=== PATIENT | male | born 1945 | race African-American/Black ===

== ENCOUNTER 2019-07-23 23:56 | Inpatient (IN) | payer MEDICARE, OTHER ==
[~2019-07-23] VITALS: Ht 177.8 cm; Wt 99.4 kg
[2019-07-24] MEDS ORDERED: SODIUM CHLORIDE 0.9% 1,000 ML IV ONE (01:28)
[2019-07-24] MEDS ORDERED: ASPIRIN 81MG TABLET PO ONE (01:30)
[2019-07-24] MEDS ORDERED: NITROGLYCERIN OINT 1GM/INCH UDPKT TD ONE (01:30)
[2019-07-24 01:45] LABS: BASOPHILS % 0.5 % (0.0-2.0); EOSINOPHILS % 0.4 % (0.0-5.0); HEMATOCRIT. 45.8 % (42.0-52.0); HEMOGLOBIN. 15.6 g/dL (14.0-18.0); MEAN CORPUSCULAR HEMOGLOBIN 31.7 pg (28.0-32.0); MEAN CORPUSCULAR VOLUME 92.9 fL (80.0-94.0); MEAN PLATELET VOLUME 8.7 fl (7.4-10.4); MONOCYTES % 7.3 % (2.0-8.0); NEUTROPHILS % 79.8 % (40.0-76.0); PLATELET 216 x1000/uL (130-400); RED BLOOD CELL COUNT 4.93 mill/uL (4.7-6.1); RED CELL DISTRIBUTION WIDTH 14.6 % (11.6-14.6)
[2019-07-24 01:51] LABS: CHLORIDE 110 mEq/L (98-107)
[2019-07-24 01:55] LABS: INR 1.1; PROTHROMBIN TIME 11.4 sec (9.6-11.0)
[2019-07-24] MEDS ORDERED: ENOXAPARIN 100MG/ML SYR SUBCUT ONE (10:15)
[2019-07-24 11:15] VITALS: BP 154/95
[2019-07-24 16:00] VITALS: BP 158/87
[2019-07-24] MEDS ORDERED: ACETAMINOPHEN 325MG TABLET PO PRN (16:00)
[2019-07-24] MEDS ORDERED: MAGNESIUM HYDROXIDE 400MG/5ML 30ML UDC PO PRN (16:00)
[2019-07-24] MEDS ORDERED: LORAZEPAM 1MG TABLET PO PRN (16:00)
[2019-07-24] MEDS ORDERED: CLOP75TA4 MT (18:45)
[2019-07-24] MEDS ORDERED: MAGN250T29 MT (18:45)
[2019-07-24] MEDS ORDERED: AMLO2.5T45 MT (18:45)
[2019-07-24] MEDS ORDERED: LEVO25TA7 MT (18:45)
[2019-07-24 20:00] VITALS: BP 158/96
[2019-07-24] MEDS: ATORVASTATIN CALCIUM 20MG TABLET PO SCH (21:00)
[2019-07-24] MEDS: CLOPIDOGREL 75MG TABLET PO SCH (21:00)
[2019-07-24] MEDS ORDERED: NITROGLYCERIN OINT 1GM/INCH UDPKT TD SCH (22:00)
[2019-07-24] MEDS: NITROGLYCERIN OINT 1GM/INCH UDPKT TD SCH (22:18)
[2019-07-24] MEDS ORDERED: ENOXAPARIN 80MG/0.8ML SYR SUBCUT NR (23:00)
[2019-07-25] VITALS: BP 147/99
[2019-07-25 04:00] VITALS: BP 147/80
[2019-07-25] MEDS: NITROGLYCERIN OINT 1GM/INCH UDPKT TD SCH ×3 (06:12→21:26)
[2019-07-25 07:12] LABS: BASOPHILS % 0.4 % (0.0-2.0); HEMATOCRIT. 44.6 % (42.0-52.0); LYMPHOCYTES % 16.8 % (20.0-50.0); MEAN CORPUSCULAR HEMOGLOBIN 31.6 pg (28.0-32.0); MEAN CORPUSCULAR VOLUME 94.1 fL (80.0-94.0); MEAN PLATELET VOLUME 8.7 fl (7.4-10.4); MONOCYTES % 9.9 % (2.0-8.0); NEUTROPHILS % 68.9 % (40.0-76.0); PLATELET 166 x1000/uL (130-400); RED BLOOD CELL COUNT 4.75 mill/uL (4.7-6.1); RED CELL DISTRIBUTION WIDTH 15.1 % (11.6-14.6)
[2019-07-25 07:35] LABS: CHLORIDE 109 mEq/L (98-107)
[2019-07-25 08:00] VITALS: BP 150/90
[2019-07-25] MEDS: DOCUSATE SODIUM 100MG CAPSULE PO SCH (09:00)
[2019-07-25] MEDS: FAMOTIDINE 20MG TABLET PO SCH (09:00)
[2019-07-25] MEDS: ASPIRIN 81MG EC TABLET PO SCH (10:04)
[2019-07-25] MEDS: CLOPIDOGREL 75MG TABLET PO SCH (10:04)
[2019-07-25] MEDS ORDERED: SODIUM CHLORIDE 0.45% 1,000 ML IV SCH (10:30)
[2019-07-25 12:00] VITALS: BP 130/82
[2019-07-25] MEDS: IPRATROPIUM/ALBUTEROL 0.5-3(2.5)MG/3ML NEB HHN SCH ×2 (14:30→20:10)
[2019-07-25 16:00] VITALS: BP 140/70
[2019-07-25] MEDS ORDERED: ENOXAPARIN 80MG/0.8ML SYR SUBCUT NR (17:00)
[2019-07-25 20:00] VITALS: BP 138/75
[2019-07-25] MEDS: ATORVASTATIN CALCIUM 20MG TABLET PO SCH ×2 (21:00→21:27)
[2019-07-26] VITALS: BP 130/80
[2019-07-26] MEDS: IPRATROPIUM/ALBUTEROL 0.5-3(2.5)MG/3ML NEB HHN SCH ×5 (00:17→20:15)
[2019-07-26 04:00] VITALS: BP 140/82
[2019-07-26] MEDS: NITROGLYCERIN OINT 1GM/INCH UDPKT TD SCH ×3 (05:41→21:17)
[2019-07-26 06:38] LABS: BASOPHILS % 0.4 % (0.0-2.0); EOSINOPHILS % 2.6 % (0.0-5.0); HEMATOCRIT. 43.3 % (42.0-52.0); HEMOGLOBIN. 14.8 g/dL (14.0-18.0); MEAN CORPUSCULAR VOLUME 93.4 fL (80.0-94.0); MEAN PLATELET VOLUME 8.2 fl (7.4-10.4); MONOCYTES % 10.4 % (2.0-8.0); NEUTROPHILS % 68.6 % (40.0-76.0); PLATELET 175 x1000/uL (130-400); RED BLOOD CELL COUNT 4.64 mill/uL (4.7-6.1); RED CELL DISTRIBUTION WIDTH 14.6 % (11.6-14.6)
[2019-07-26 07:12] LABS: CHLORIDE 107 mEq/L (98-107)
[2019-07-26 08:00] VITALS: BP 144/92
[2019-07-26] MEDS: DOCUSATE SODIUM 100MG CAPSULE PO SCH (09:00)
[2019-07-26] MEDS: FAMOTIDINE 20MG TABLET PO SCH (09:00)
[2019-07-26] MEDS: ASPIRIN 81MG EC TABLET PO SCH (09:27)
[2019-07-26] MEDS: CLOPIDOGREL 75MG TABLET PO SCH (09:27)
[2019-07-26 12:00] VITALS: BP 144/85
[2019-07-26 16:00] VITALS: BP 122/77
[2019-07-26] MEDS: ATORVASTATIN CALCIUM 20MG TABLET PO SCH (21:00)
[2019-07-27] VITALS: BP 140/81
[2019-07-27 04:00] VITALS: BP 147/81
[2019-07-27] MEDS: NITROGLYCERIN OINT 1GM/INCH UDPKT TD SCH ×3 (05:52→22:00)
[2019-07-27 08:00] VITALS: BP 131/76
[2019-07-27] MEDS: DOCUSATE SODIUM 100MG CAPSULE PO SCH (09:00)
[2019-07-27] MEDS: FAMOTIDINE 20MG TABLET PO SCH (09:00)
[2019-07-27] MEDS ORDERED: ENOXAPARIN 80MG/0.8ML SYR SUBCUT NR (09:30)
[2019-07-27] MEDS: ASPIRIN 81MG EC TABLET PO SCH (09:39)
[2019-07-27] MEDS: CLOPIDOGREL 75MG TABLET PO SCH (09:39)
[2019-07-27 09:55] LABS: BASOPHILS % 0.4 % (0.0-2.0); EOSINOPHILS % 3.5 % (0.0-5.0); HEMATOCRIT. 43.3 % (42.0-52.0); HEMOGLOBIN. 14.7 g/dL (14.0-18.0); LYMPHOCYTES % 12.9 % (20.0-50.0); MEAN CORPUSCULAR HEMOGLOBIN 32.1 pg (28.0-32.0); MEAN CORPUSCULAR VOLUME 94.4 fL (80.0-94.0); MEAN PLATELET VOLUME 8.2 fl (7.4-10.4); MONOCYTES % 8.9 % (2.0-8.0); NEUTROPHILS % 74.3 % (40.0-76.0); PLATELET 181 x1000/uL (130-400); RED BLOOD CELL COUNT 4.58 mill/uL (4.7-6.1); RED CELL DISTRIBUTION WIDTH 14.9 % (11.6-14.6)
[2019-07-27 10:00] LABS: CHLORIDE 107 mEq/L (98-107)
[2019-07-27 10:08] LABS: LDL CHOLESTEROL 130 mg/dL (5-100)
[2019-07-27 10:10] LABS: HDL CHOLESTEROL 37 mg/dL (40-59)
[2019-07-27] MEDS ORDERED: IPRATROPIUM/ALBUTEROL 0.5-3(2.5)MG/3ML NEB HHN PRN (11:00)
[2019-07-27 12:00] VITALS: BP 140/90
[2019-07-27] MEDS ORDERED: CARVEDILOL 3.125 MG TABLET PO NR (12:00)
[2019-07-27 16:00] VITALS: BP 121/87
[2019-07-27 20:00] VITALS: BP 156/91
[2019-07-27] MEDS: CARVEDILOL 3.125 MG TABLET PO SCH (21:00)
[2019-07-27] MEDS: ATORVASTATIN CALCIUM 20MG TABLET PO SCH (21:00)
[2019-07-28] VITALS: BP 163/91
[2019-07-28] MEDS: NITROGLYCERIN OINT 1GM/INCH UDPKT TD SCH ×2 (06:00→14:00)
[2019-07-28 06:47] LABS: BASOPHILS % 0.6 % (0.0-2.0); HEMOGLOBIN. 15.4 g/dL (14.0-18.0); LYMPHOCYTES % 16.4 % (20.0-50.0); MEAN CORPUSCULAR HEMOGLOBIN 31.4 pg (28.0-32.0); MEAN CORPUSCULAR VOLUME 93.7 fL (80.0-94.0); MEAN PLATELET VOLUME 8.5 fl (7.4-10.4); MONOCYTES % 10.1 % (2.0-8.0); NEUTROPHILS % 67.9 % (40.0-76.0); PLATELET 200 x1000/uL (130-400); RED BLOOD CELL COUNT 4.91 mill/uL (4.7-6.1); RED CELL DISTRIBUTION WIDTH 15.2 % (11.6-14.6)
[2019-07-28 07:24] LABS: CHLORIDE 108 mEq/L (98-107)
[2019-07-28 08:00] VITALS: BP 163/97
[2019-07-28] MEDS: ASPIRIN 81MG EC TABLET PO SCH (09:00)
[2019-07-28] MEDS: FAMOTIDINE 20MG TABLET PO SCH (09:00)
[2019-07-28] MEDS: DOCUSATE SODIUM 100MG CAPSULE PO SCH (09:00)
[2019-07-28] MEDS: CARVEDILOL 3.125 MG TABLET PO SCH (09:00)
[2019-07-28] MEDS ORDERED: ENOXAPARIN 80MG/0.8ML SYR SUBCUT SCH (09:00)
[2019-07-28] MEDS: CLOPIDOGREL 75MG TABLET PO SCH (09:00)
== END 2019-07-28 15:35 | disposition left against medical advice (07) | DRG 281 ==
LOC: ER 23:56 → 5WST 07-24 03:14 → EDBEDREQTM 07-24 03:19 → EDBEDREQ 07-24 03:19 → ENRESERV 07-24 10:58
PROVIDERS: ADMIT Internal Medicine Critical Care Medicine; ATTEND Internal Medicine Critical Care Medicine
DX: I21.4 Non-ST elevation (NSTEMI) myocardial infarction (principal); I50.20 Unspecified systolic (congestive) heart failure; I25.110 Atherosclerotic heart disease of native coronary artery with unstable angina pectoris; E03.9 Hypothyroidism, unspecified; E78.5 Hyperlipidemia, unspecified; H54.61 Unqualified visual loss, right eye, normal vision left eye; I11.0 Hypertensive heart disease with heart failure; J44.9 Chronic obstructive pulmonary disease, unspecified; M06.9 Rheumatoid arthritis, unspecified; I34.0 Nonrheumatic mitral (valve) insufficiency; M19.90 Unspecified osteoarthritis, unspecified site; Z53.21 Procedure and treatment not carried out due to patient leaving prior to being seen by health care provider; Z86.73 Personal history of transient ischemic attack (TIA), and cerebral infarction without residual deficits; Z95.5 Presence of coronary angioplasty implant and graft; Z79.899 Other long term (current) drug therapy; Z91.19 Patient's noncompliance with other medical treatment and regimen
CPT/HCPCS: 36415; 71045; 80048; 80061; 83735; 83880; 84443; 84484; 93005; 93306; 94640; 96360; 96361; 99291; J1650; J7030; J7620